=== PATIENT | male | born 1990 | race Caucasian/White ===

== ENCOUNTER 2019-04-01 06:51 | Emergency (ER) | payer SELFPAY ==
[2019-04-01 07:10] VITALS: BP 152/103; PULSE 62; RESP 18; TEMP 36.6; O2SAT 100
--- NOTE | 2019-04-01 07:36 | ED.DENTAL ---
HPI - Dental/Oral General Chief complaint: Dental/Oral Stated complaint: left lower wisdom tooth pain x3 days Time Seen by Provider: 04/01/19 07:20 Source: patient Mode of arrival: Family Vehicle Limitations: no limitations History of Present Illness HPI Narrative: 29-year-old male here for evaluation of left lower wisdom tooth pain. Patient states that he has ?bad teeth? is planning on seeing a dentist in 2 weeks to talk about having these removed. States over the past couple days the left lower tooth has become more painful. No problems breathing. No problems swallowing. Related Data Previous Rx's Medication Instructions Recorded penicillin V potassium 500 mg PO QID 7 Days #28 tab 04/01/19 Allergies Allergy/AdvReac Type Severity Reaction Status Date / Time No Known Drug Allergies Allergy Verified 04/01/19 07:38 Review of Systems Constitutional Constitutional: Denies fever(s), Denies night sweats and Denies poor appetite ENT Comments: Left lower dental pain Cardiovascular Cardiovascular: Denies chest pain and Denies dyspnea Respiratory Respiratory: Denies dyspnea Integumentary/Breasts Skin/Breast: Denies lesions and Denies rash Neurologic Neurologic: Denies behavioral changes Psychiatric Psychiatric: Denies behavioral changes Hematologic/Lymphatic Hematologic/Lymphatic: Denies easy bleeding and Denies easy bruising Patient History Medical/Surgical History Medical History Patient denies medical problems (Acute) Social History Smoking Status: Former smoker Family/Social History Social History Smoking Status: Former smoker alcohol intake frequency: 0-2 drinks per day Exam Initial Vital Signs Initial Vital Signs: Vital Signs Temperature 97.8 F 04/01/19 07:10 Pulse Rate 62 04/01/19 07:10 Respiratory Rate 18 04/01/19 07:10 Blood Pressure 152/103 H 04/01/19 07:10 Pulse Oximetry 100 04/01/19 07:10 Const General: cooperative Orientation: alert and awake HENMT Head: normal to inspection, normocephalic and atraumatic Ears: TM's normal bilaterally Face and sinus: normal facial exam Mouth: tongue normal Teeth and gingiva: caries and poor dentition Throat: posterior oropharynx normal Neck Lymphatic: No lymphadenopathy Resp Effort & Inspection: normal respiratory effort Skin Lesions: no lesions Rashes: no rashes Neuro General: alert and awake Cognition: normal cognition Speech: speech normal Extrem General: normal to inspection and capillary refill normal Psych Appearance: grossly normal and well kempt Course Vital Signs Vital signs: Vital Signs - 8 hr 04/01/19 07:10 Temperature 97.8 F Pulse Rate 62 Respiratory Rate 18 Blood Pressure 152/103 H Pulse Oximetry 100 MDM - Dental/Oral MDM Narrative Medical decision making narrative: Patient does have poor dentition. Does have a cracked and half missing left lower 3rd molar. There is no defined abscess requiring drainage here in the ER. Will send home on antibiotics. Patient informed that he could take Tylenol and/or ibuprofen for any discomfort. He was instructed that he does need to keep all of his appointments with his dental provider he is given return precautions and follow-up instructions. Expressed understanding agreement plan. Discharge Plan Departure Patient Disposition: Home Clinical Impression: Toothache Instructions: DI for Dental Pain Activity Restrictions/Additional Instructions: Take the antibiotics as directed. You can also take Tylenol and/or ibuprofen for any discomfort. I do recommend that you keep all of your scheduled medical appointments to include your dental providers. Return to the emergency department for any worsening symptoms Prescriptions: New penicillin V potassium 500 mg tablet 500 mg PO QID 7 Days Qty: 28 RF: 0
[2019-04-01 08:02] VITALS: BP 128/79; PULSE 67; RESP 16; O2SAT 100
== END 2019-04-01 08:03 | disposition home or self-care (01) ==
PROVIDERS: Emergency Provider Emergency Medicine
DX: K08.89 Other specified disorders of teeth and supporting structures (principal)
CPT/HCPCS: 99282